=== PATIENT | female | born 1960 | race Caucasian/White ===

== ENCOUNTER 2016-08-22 07:46 | Day surgery (SDC) | payer OTHER ==
--- NOTE | ~2016-08-22 | EGD ---
EGD REPORT [facility] [address] [place] [address] NAME: JUAN ALBERTO WHITMAN : 60 STATUS : REG [facility]#: [id number] AGE: 55 ADM/REG DATE : 08/22/16 MR#: [id number] REPORT SERV DATE: 08/22/16 DICTATED BY: ABBEY HERNANDEZ DATE: 08/22/16 REPORT STATUS : Draft TRANSCRIBED BY: [employer] DATE: 08/22/16 Endoscopy Center Patient Name: Juan Alberto Whitman Date of : 1960 Attending MD: ABBEY HERNANDEZ, Procedure Date No Time: 08/22/2016 Procedure: Upper EUS Indications: Gastric deformity on endoscopy/Subepithelial tumor versus extrinsic compression Referring MD: JAMIE LOPEZ MD, ZACARIAS WOODS Medicines: Monitored Anesthesia Care Complications: No immediate complications. Estimated blood loss: None. Procedure: Pre-Anesthesia Assessment: - ASA Grade Assessment: II - A patient with mild systemic disease. After obtaining informed consent, the endoscope was passed under direct vision. Throughout the procedure, the patient's blood pressure, pulse, and oxygen saturations were monitored continuously. The Endoscope was introduced through the mouth, and advanced to the second part of duodenum. The GIF [id number] was introduced through the mouth, and advanced to the second part of duodenum. Findings: Endoscopic Finding : The examined esophagus was endoscopically normal. A single medium-sized papule (nodule) with no bleeding and no stigmata of recent bleeding was found in the gastric body along the greater curve. Area was successfully injected with 4 mL Spot (carbon black) for tattooing. The cardia and gastric fundus were normal on retroflexion. The exam of the stomach was otherwise normal. The examined duodenum was endoscopically normal. Endosonographic Finding : A round intramural (subepithelial) lesion was found in the greater curve of the stomach. The lesion was hypoechoic. Sonographically, the lesion appeared to originate from the submucosa (Layer 3). The lesion measured 23 mm (in maximum thickness). The lesion also measured 17 mm in diameter. The outer endosonographic borders were well defined. Fine needle aspiration was performed. Color Doppler imaging was utilized prior to needle puncture to confirm a lack of significant vascular structures within the needle path. Five passes were made with the 22 gauge needle using a transgastric approach. Final cytology results are pending. EGD REPORT [place] [id number] [facility] [place]. [address] NAME: JUAN ALBERTO WHITMAN : 60 STATUS : REG [facility] PAT#: [id number] AGE: 55 ADM/REG DATE : 08/22/16 MR#: [id number] REPORT SERV DATE: 08/22/16 DICTATED BY: ABBEY HERNANDEZ DATE: 08/22/16 REPORT STATUS : Draft TRANSCRIBED BY: [employer] DATE: 08/22/16 There was no sign of significant endosonographic abnormality in the entire pancreas. The pancreas was well visualized, no pathologic lymphadenopathy, no masses, the pancreatic duct was well visualized from ampulla to tail, the pancreatic duct was regular in contour. There was no sign of significant endosonographic abnormality in the common bile duct. An unremarkable gallbladder was identified. There was no sign of significant endosonographic abnormality in the examined duodenum. There was no sign of significant endosonographic abnormality in the esophagus. No lymphadenopathy seen. Impression: - Normal esophagus. - A single medium-sized papule (nodule) with no bleeding and no stigmata of recent bleeding was found in the stomach. Injected. - Normal examined duodenum. - An intramural (subepithelial) lesion was found in the greater curve of the stomach. The lesion appeared to originate from within the submucosa (Layer 3). The diagnosis is a stromal cell (smooth muscle) neoplasm. - There was no sign of significant pathology in the entire pancreas. - There was no sign of significant pathology in the common bile duct. - There was no sign of significant pathology in the examined duodenum. - There was no sign of significant pathology in the esophagus. Recommendation: - Return to previous diet. - Continue present medications. - Await cytology results. Procedure Code(s): --- Professional --- 20306, Esophagogastroduodenoscopy, flexible, transoral; with transendoscopic ultrasound-guided intramural or transmural fine needle aspiration/biopsy(s) (includes endoscopic ultrasound examination of the esophagus, stomach, and either the duodenum or a surgically altered stomach where the jejunum is examined distal to the anastomosis) Diagnosis Code(s): --- Professional --- K31.9, Disease of stomach and duodenum, unspecified D49.0, Neoplasm of unspecified behavior of digestive system EGD REPORT [facility] [address] [place], [place] [address] [id number] NAME: JUAN ALBERTO WIHTMAN : 60 STATUS : REG [facility]#: [id number] AGE: 55 ADM/REG DATE : 08/22/16 MR#: [id number] REPORT SERV DATE: 08/22/16 DICTATED BY: ABBEY HERNANDEZ DATE: 08/22/16 REPORT STATUS : Draft TRANSCRIBED BY: [employer] DATE: 08/22/16 CPT copyright 2013 [employer]. All rights reserved. The codes documented in this report are preliminary and upon oncology rn review may be revised to meet current compliance requirements. ABBEY HERNANDEZ, 08/22/2016 10:17 AM Number of Addenda: 0 Note Initiated On: 08/22/2016 9:45 AM Scope Withdrawal Time 0 hours 0 minutes 0 seconds [address] [place] [id number]
[~2016-08-22 07:46] MED LIST: ESTRATEST PO
[2016-11-29] MEDS ORDERED: EXCEDRIN MIGRA1 EAC1 PO (09:31)
[2016-12-16] MEDS ORDERED: PERCOCET 7.5/321 TAB PO (07:42)
== END 2016-08-22 23:59 | disposition home or self-care (01) ==
LOC: DMU 07:46
PROVIDERS: Internal Medicine Gastroenterology
PROC: 0D968ZX Drainage of Stomach, Via Natural or Artificial Opening Endoscopic, Diagnostic (ICD-10-PCS; principal; 2016-08-22 09:00)
DX: D48.1 Neoplasm of uncertain behavior of connective and other soft tissue (principal); K31.9 Disease of stomach and duodenum, unspecified; Z79.818 Long term (current) use of other agents affecting estrogen receptors and estrogen levels
CPT/HCPCS: 88173; 88305; 88341; 88342